=== PATIENT | male | born 1985 | race Caucasian/White ===

== ENCOUNTER 2021-08-23 16:24 | Emergency (ER) | payer OTHER, SELFPAY ==
--- NOTE | ~2021-08-23 | XR_ITS ---
EXAMINATION: XR LUMBOSACRAL SPINE CLINICAL INFORMATION: Fall acute pain COMPARISON: None TECHNIQUE: Three views of the lumbosacral spine. FINDINGS: The vertebral bodies and posterior elements are normal. The disc spaces are preserved and the vertebral alignment is normal. The paraspinal soft tissues are normal. XR/XR lumbar spine 2-3V IMPRESSION: Unremarkable examination.
[2021-08-23 16:52] VITALS: BP 143/92; PULSE 64; RESP 18; TEMP 36.2; O2SAT 99; BMI 31.4
--- NOTE | 2021-08-23 18:18 | ED.BACK ---
HPI - Back Pain/Injury General Chief Complaint: Back Pain/Injury Stated Complaint: injured back at work Time Seen by Provider: 08/23/21 18:03 Source: patient Mode of arrival: ambulatory Limitations: no limitations History of Present Illness HPI Narrative: Patient is a 36-year-old male with a past medical history of herniated disc. He presents to the emergency department today for evaluation of acute back pain. 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 He felt some moderate discomfort initially that then progressively got worse while walking. He states that the pain is in his mid lower back radiating to the bilateral sides, and radiates down his left leg. It is described as feeling hot and sharp. Earlier he experienced some numbness to the leg but does not currently have this. Denies fevers, chills, burning with micturition, urinary frequency, urgency, hesitancy, bladder or bowel dysfunction, numbness or tingling of the perineum or bilateral legs. Denies any recent surgical procedures, any known immune compromising conditions, personal history of cancer, or IV drug usage. Related Data Previous Rx's Medication Instructions Recorded cyclobenzaprine 10 mg tablet 10 mg PO TID PRN #14 tab 08/23/21 Allergies Allergy/AdvReac Type Severity Reaction Status Date / Time No Known Allergies Allergy Verified 08/23/21 16:51 Review of Systems Review of Systems: Constitutional: No weight loss, fever, chills, weakness or fatigue. Skin: No rash or itching. Cardiovascular: No chest pain, chest pressure or chest discomfort. No palpitations or pedal edema. Respiratory: No shortness of breath, cough or sputum production. Gastrointestinal: No anorexia, nausea, vomiting or diarrhea. No abdominal pain or blood in stool. Genitourinary: No burning micturition. No urinary frequency or incontinence. Neurologic: No headache, dizziness, syncope, unilateral weakness, ataxia, numbness or tingling in the extremities. No change in bowel or bladder control. Musculoskeletal: + Back pain as noted in HPI. No joint pain or stiffness. Hematologic: No bleeding or bruising. Lymphatics: No enlarged lymph nodes. Psychiatric:No depression or anxiety. Endocrine: No polyuria or polydipsia. ON LICENSE OF [facility] Past Medical History Attestation statement: The following information was validated with the patient. Source: old records reviewed Medical History Depression Social History Social History Advance Directives: No Advance Directives Information Provided: No Physical Exam Vital Signs: Vital Signs: Last Vital Signs Temp 97.2 F 08/23/21 16:52 Pulse 64 08/23/21 16:52 Resp 18 08/23/21 16:52 BP 143/92 H 08/23/21 16:52 Pulse Ox 99 08/23/21 16:52 BMI result Body Mass Index 31.4 Vital signs have been reviewed as normal and appeared to be correct. Blood pressure normal.? Heart rate normal.? Respiration rate normal. Temperature normal.? Oxygen saturation normal. Appearance: Alert.?Oriented to person, place and time. No acute distress.?Normal affect. Eyes: Pupils equal, round and reactive to light.? ENT: Pharynx normal.?? Neck: Normal inspection.? Neck supple.?? CVS: Heart sounds normal. Normal heart rate and rhythm.? Pulses normal; bilateral radial pulses 2+, bilateral posterior tibial/dorsalis pedis pulses 2+.? Respiratory: No respiratory distress.? Lung sounds clear to auscultation bilaterally?? Abdomen: Soft and non-tender. Normoactive bowel sounds. No pulsatile mass.?? Skin: Skin warm and dry.? Normal skin color.? Normal skin turgor.?? Extremities: No lower extremity edema.? No calf ttp? Back: + mild paraspinal muscular tenderness from lumbar region to coccyx. No CVA tenderness. No midline spinal tenderness, step-off's, or deformity. Full ROM intact in bilateral lower extremities. Straight leg test negative on right; Straight leg test positive on left. No rashes, lesions, areas of induration or fluctuance, or signs of infection noted., Neuro: Moves all extremities spontaneously. 5/5 strength in hip extension/flexion, abduction, adduction. Sensation to light touch intact bilaterally. Patellar and Achilles reflex 2+ bilaterally. No ataxia, antalgic gait. No focal neuro deficits. Course Course Course Narrative: Patient is a 36-year-old male being evaluated for acute back pain after an injury at work today. He has a known herniated disc, to the lower back but is uncertain specifically where. Pain is most likely consistent with muscular pain, sciatica, although cannot completely exclude new herniated disc. On neurological exam there are no deficits. Not consistent with spinal fracture, spinal infection, epidural abscess, AAA, epidural abscess, or dissection. No high risk past medical history including incontinence, fever, immunosuppression, recent surgery or lumbar puncture, coagulopathy, significant trauma, recent unintentional weight loss, pulsatile mass, history of cancer, history of TB, history of IV drug use that would warrant MRI or CT. Not consistent with pyelonephritis, urinary tract infection, renal calculi, appendicitis, diverticulitis. On exam no concern for cauda equina syndrome. No MRI imaging is currently indicated at this time. Given his acute trauma will obtain plain film to exclude fracture, pain management to include Toradol IM and cyclobenzaprine PO. Disposition pending results. Reevaluation(s) Reevaluation #1: XR the lumbar spine is normal. Patient reports some improvement in pain after receiving Toradol and Flexeril. Plan for discharge home with new Rx for Flexeril, discussed rest, ice and heat application, gentle exercising, Tylenol and ibuprofen as needed, and Voltaren gel, advised to contact his employer as this is a work related injury and follow-up with primary care provider, discussed reasons to return to the emergency department, patient agreed with plan. MDM - Back Pain/Injury Medical Records Attestation: I reviewed the patient's medical records. Imaging Data lumbar XR: Radiologist's impression: FINDINGS: The vertebral bodies and posterior elements are normal. The disc spaces are preserved and the vertebral alignment is normal. The paraspinal soft tissues are normal. XR/XR lumbar spine 2-3V IMPRESSION: Unremarkable examination Discharge Plan Discharge Clinical Impression: Strain of lumbar region Patient Disposition: Home, Self-Care Instructions: Acute Low Back Pain (ED) Additional Instructions: The x-ray obtained of your lumbar spine was normal. Fingers Tylenol and ibuprofen as needed for pain, in addition to applying ice and heat. Voltaren gel can be purchased over the counter. You have been given a new prescription for cyclobenzaprine, this is a muscle relaxer, you can use this as needed for your pain every 8 hours. It may make you drowsy as it can be sedating, therefore you should not drive or operate machinery room while taking this med who is referred to hours afterwards. As this was a work related injury, I would contact your employer to discuss their protocols for work related injuries, as you may need to follow-up with their workman's comp services. In addition, please contact your primary care provider to schedule follow-up appointment in 1-3 days. You may return to the emergency department at any time for any new or worsening symptoms or concerns. Prescriptions: New cyclobenzaprine 10 mg tablet 10 mg PO TID PRN (Reason: muscle spasm) Qty: 14 0RF Stand Alone Forms: Work/School Release
[2021-08-23] MEDS: Ketorolac Tromethamine 60 MG/2 ML VIAL IM (18:34)
[2021-08-23] MEDS: Cyclobenzaprine HCl 10 MG TABLET PO (18:34)
== END 2021-08-23 19:47 | disposition home or self-care (01) ==
PROVIDERS: Emergency Provider Emergency Medicine; PCP Physician Assistant
DX: S39.012A Strain of muscle, fascia and tendon of lower back, initial encounter (principal); W19.XXXA Unspecified fall, initial encounter; Y93.9 Activity, unspecified; Y92.219 Unspecified school as the place of occurrence of the external cause; Y99.0 Civilian activity done for income or pay
CPT/HCPCS: 72100; 96372; 99284; J1885